=== PATIENT | male | born 1975 | race Caucasian/White ===

== ENCOUNTER 2018-08-20 16:14 | Emergency (ER) | payer OTHER ==
[~2018-08-20] VITALS: Ht 162.6 cm; Wt 63.5 kg
[2018-08-20] MEDS ORDERED: PERCOCET 5-3251 EACH PO (16:50)
[2018-08-20] MEDS ORDERED: XANAX2 MG PO (16:50)
== END 2018-08-20 17:03 | disposition home or self-care (01) ==
LOC: ER 16:14
DX: M75.81 Other shoulder lesions, right shoulder (principal); R00.2 Palpitations; F41.0 Panic disorder [episodic paroxysmal anxiety]